=== PATIENT | male | born 1975 | race Caucasian/White ===

== ENCOUNTER 2016-10-22 23:33 | Emergency (ER) | payer SELFPAY ==
[2016-10-22] MEDS ORDERED: ACETAMINOPHEN 325 MG TABLET PO ONE (23:53)
--- NOTE | 2016-10-23 01:40 | ER Document Report ---
ED Fever - General Chief Complaint: Fever Stated Complaint: CHEST PAIN TRAVEL OUTSIDE OF THE U.[place]. IN LAST 30 DAYS: No - Related Data Allergies/Adverse Reactions: shrimp Allergy (Uncoded 03/04/13 00:15) Past Medical History - Social History Smoking Status: Unknown if Ever Smoked Family History: Reviewed & Not Pertinent. denies: CAD Patient has suicidal ideation: No Patient has homicidal ideation: No Pulmonary Medical History: Reports: Hx Asthma Denies: Hx COPD Renal/ Medical History: Denies: Hx Peritoneal Dialysis - Immunizations Hx Diphtheria, Pertussis, Tetanus Vaccination: No Discharge - Discharge Clinical Impression: Influenza A Condition: Stable Disposition: HOME, SELF-CARE Instructions: Influenza ([facility]) [id number] Forms: Return to Work
[2016-10-23] MEDS ORDERED: ONDANSETRON 4 MG TAB.RAPDIS PO ONE (01:43)
[2016-10-23] MEDS ORDERED: IBUPROFEN 800 MG TABLET PO ONE (01:43)
--- NOTE | 2016-10-23 01:44 | ER Document Report ---
ED Flu Like - General Mode of Arrival: Ambulatory Information source: Patient TRAVEL OUTSIDE OF THE [place] IN LAST 30 DAYS: No - HPI Onset: This morning Timing/Duration: Persistent Quality of pain: Achy Associated symptoms: Other - see narrative - General Chief Complaint: Fever Stated Complaint: CHEST PAIN Notes: Patient is a 41-year-old Maori speaking male that presents to the emergency department today with flu-like symptoms including fevers, a cough with associated chest wall pain, a headache, and nasal congestion. Patient states he has a past medical history significant for asthma. Patient states he did not receive a flu vaccination this year. Patient denies any nausea or vomiting. (FELIPE REGAN) - Related Data Allergies/Adverse Reactions: shrimp Allergy (Uncoded 03/04/13 00:15) Past Medical History - General Information source: Patient - Social History Smoking Status: Never Smoker Cigarette use (# per day): No Frequency of alcohol use: None Drug Abuse: None Lives with: Family Family History: Reviewed & Not Pertinent Patient has suicidal ideation: No Patient has homicidal ideation: No Pulmonary Medical History: Reports: Hx Asthma Surgical Hx: Negative - Immunizations Hx Diphtheria, Pertussis, Tetanus Vaccination: No Review of Systems - Review of Systems Constitutional: See HPI, Fever EENT: See HPI, Nose congestion Cardiovascular: No symptoms reported Respiratory: See HPI, Cough - with associated chest wall pain Gastrointestinal: denies: Nausea, Vomiting Genitourinary: No symptoms reported Male Genitourinary: No symptoms reported Musculoskeletal: No symptoms reported Skin: No symptoms reported Hematologic/Lymphatic: No symptoms reported Neurological/Psychological: See HPI, Headaches -: Yes All other systems reviewed and negative Physical Exam - Vital signs Interpretation: Tachycardic, Febrile - Vital signs Vitals: Temp Pulse Resp BP Pulse Ox 102.2 F H 129 H 18 124/68 98 10/22/16 23:39 10/22/16 23:39 10/22/16 23:39 10/22/16 23:39 10/22/16 23:39 (CHRISTOPHER GLEASON) - Notes Notes: Physical Exam: General: Alert, febrile. HEENT: Normocephalic. Atraumatic. PERRL. Extraocular movements intact. Oropharynx clear. Nasal congestion. Neck: Supple. Non-tender. Respiratory: No respiratory distress. Clear and equal breath sounds bilaterally. Cardiovascular: Tachycardic, regular rhythm. Abdominal: Normal Inspection. Non-tender. No distension. Normal Bowel Sounds. Back: Non-tender. No deformity or step off. Extremities: Moves all four extremities. Upper extremities: Normal inspection. Normal ROM. Lower extremities: Normal inspection. No edema. Normal ROM. Neurological: Normal cognition. AAOx4. Normal speech. Psychological: Normal affect. Normal Mood. Skin: Warm. Dry. Normal color. (FELIPE REGAN) Course - Re-evaluation Re-evalutation: 10/23/16 Patient with influenza A. Patient will be instructed to take Tylenol and ibuprofen. No respiratory distress. Stable for discharge home. Return if any worsening or concerning symptoms. (CHRISTOPHER GLEASON) - Vital Signs Vital signs: Temp Pulse Resp BP Pulse Ox 99.2 F 98 16 124/78 98 10/23/16 02:54 10/23/16 02:54 10/23/16 02:54 10/23/16 02:54 10/23/16 02:54 (CHRISTOPHER GLEASON) Discharge - Discharge Clinical Impression: Influenza A Condition: Stable Disposition: HOME, SELF-CARE Instructions: Influenza ([facility]) [id number] Forms: Return to Work Print Language: Maori Scribe Attestation: 10/23/16 06:16 I personally performed the services described in the documentation, reviewed and edited the documentation which was dictated to the scribe in my presence, and it accurately records my words and actions. (CHRISTOPHER GLEASON) Scribe Documentation - Scribe Written by Crystal:: Crystal Maurer, [id number] 10/23/2016 acting as scribe for :: Sherrie
[2016-10-23 02:56] VITALS: BP 124/78
--- NOTE | 2016-10-23 23:50 | EKG REPORT ---
SEVERITY:- OTHERWISE NORMAL ECG - SINUS TACHYCARDIA : Confirmed by: Mark Leon 23-Oct-2016 23:50:16
== END 2016-10-23 02:56 | disposition home or self-care (01) ==
LOC: ER 23:33
DX: J11.1 Influenza due to unidentified influenza virus with other respiratory manifestations (principal); R50.9 Fever, unspecified; R00.0 Tachycardia, unspecified; R05 Cough; R07.89 Other chest pain; R51 Headache; R09.81 Nasal congestion; J45.909 Unspecified asthma, uncomplicated; Z91.013 Allergy to seafood
CPT/HCPCS: 93005; 99283; 87804; 93010; S0119

== ENCOUNTER 2016-12-05 16:28 | Emergency (ER) | payer OTHER ==
[2016-12-05 16:35] VITALS: BP 122/70
--- NOTE | 2016-12-05 16:38 | ER Document Report ---
ED Medical Screen (RME) - General Stated Complaint: BREATHING PROBLEMS Notes: 41 yo male c/o not feeling well, having difficulty breathing x 1 year. feels short of breath, especially when eating. + cough. + nasal congestion. nonsmoker. + hx/o asthma. lungs CTA TRAVEL OUTSIDE OF THE [place] IN LAST 30 DAYS: No - Related Data Allergies/Adverse Reactions: shrimp Allergy (Uncoded 12/05/16 16:33) Past Medical History Pulmonary Medical History: Reports: Hx Asthma Denies: Hx COPD Renal/ Medical History: Denies: Hx Peritoneal Dialysis - Immunizations Hx Diphtheria, Pertussis, Tetanus Vaccination: No
--- NOTE | 2016-12-05 18:02 | ER Document Report ---
HPI - HPI Patient complains to provider of: difficulty breathing Onset: Other - one year Pain Level: 4 Context: Patient presents emergency department with complaints of difficulty breathing after he eats. He also reports nose stuffy and feels like his heart is racing at times for over a year. He denies other symptoms such as fever vomiting diarrhea. He denies past medical history such as asthma or cardiac disease. Patient is speaking in clear voice, no distress. Reports history of GERD. Patient speaks Kenyan only all interpretation was done through [facility] Associated Symptoms: None Exacerbated by: Food Relieved by: Denies Similar symptoms previously: No Recently seen / treated by doctor: No - DERM Skin Color: Normal Past Medical History - General Information source: Patient - Social History Smoking Status: Unknown if Ever Smoked Cigarette use (# per day): No Chew tobacco use (# tins/day): No Frequency of alcohol use: None Drug Abuse: None Lives with: Family Family History: Reviewed & Not Pertinent Patient has suicidal ideation: No Patient has homicidal ideation: No - Medical History Medical History: Negative Pulmonary Medical History: Denies: Hx COPD Renal/ Medical History: Denies: Hx Peritoneal Dialysis Surgical Hx: Negative - Immunizations Hx Diphtheria, Pertussis, Tetanus Vaccination: No Vertical Provider Document - CONSTITUTIONAL Agree With Documented VS: Yes Exam Limitations: No Limitations General Appearance: WD/WN, No Apparent Distress - INFECTION CONTROL TRAVEL OUTSIDE OF THE [place] IN LAST 30 DAYS: No - HEENT HEENT: Atraumatic, Normocephalic - NECK Neck: Normal Inspection, Supple. negative: Lymphadenopathy-Left, Lymphadenopathy-Right - RESPIRATORY Respiratory: Breath Sounds Normal, No Respiratory Distress, Chest Non-Tender. negative: Rales, Rhonchi, Wheezing O2 Sat by Pulse Oximetry: 100 - CARDIOVASCULAR Cardiovascular: Regular Rate, Regular Rhythm - GI/ABDOMEN Gastrointestinal: Abdomen Soft, Abdomen Non-Tender - BACK Back: Normal Inspection - MUSCULOSKELETAL/EXTREMETIES Musculoskeletal/Extremeties: MAEW, FROM, Non-Tender - NEURO Level of Consciousness: Awake, Alert, Appropriate Motor/Sensory: No Motor Deficit - DERM Integumentary: Warm, Dry Course - Re-evaluation Re-evalutation: 12/05/16 18:04 pt was instructed on neg xray, GERD, fu with ccc. All interpretation done thru [facility]. Pt does not read ivorian but reports he can get a neighbor or friend to read ivorian for his discharge instructions. Glass does not print some things in Kenyan. - Vital Signs Vital signs: Temp Pulse Resp BP Pulse Ox 98.0 F 71 16 122/70 100 12/05/16 16:34 12/05/16 16:34 12/05/16 16:34 12/05/16 16:34 12/05/16 16:34 - Diagnostic Test Radiology reviewed: Image reviewed, Reports reviewed - RAD/ CHEST PA/LAT IMPRESSION: NO SIGNIFICANT RADIOGRAPHIC FINDING IN THE CHEST. Discharge - Discharge Clinical Impression: Difficulty breathing, Nasal congestion Condition: Stable Disposition: HOME, SELF-CARE Instructions: [facility], Reflux Disease (GERD) ([facility]), Nasal Sprays and Drops ([facility]) Additional Instructions: *You have been evaluated for difficulty breathing, nasal congestion *Increase fluid intake *Avoid spicy foods, avoid over eating *Flonase one spray each nostril daily *Follow up with the [facility] within one week for recheck *Return to ED for worsening condition, changes, needs, concerns Print Language: Kenyan
[2016-12-05] MEDS ORDERED: FLUTICASONE NASAL SPRAY 50 MCG/SPRY 120 SPRAY/16 GM NASL ONE (18:19)
== END 2016-12-05 19:04 | disposition home or self-care (01) ==
LOC: ER 16:28
DX: R06.00 Dyspnea, unspecified (principal); R09.81 Nasal congestion; R09.89 Other specified symptoms and signs involving the circulatory and respiratory systems; Z87.19 Personal history of other diseases of the digestive system
CPT/HCPCS: 71020; 99284

== ENCOUNTER 2020-02-26 11:56 | Emergency (ER) | payer SELFPAY ==
[2020-02-26] MEDS ORDERED: ONDANSETRON HCL INJ/PF 4 MG/2 ML SDV IV ONE (12:15)
[2020-02-26] MEDS ORDERED: MORPHINE SULFATE 10 MG/ML INJ IV ONE (12:15)
--- NOTE | 2020-02-26 12:19 | ER Document Report ---
ED Medical Screen (RME) - General Chief Complaint: Abdominal Pain Stated Complaint: ABDOMINAL PAIN Time Seen by Provider: 02/26/20 12:05 Notes: Patient is a 45-year-old Amharic-speaking male who presents emergency department with a chief complaint of right lower abdominal pain. States the pain starts in his right lower abdomen and radiates to his mouth area. Also states the pain radiates to his back. States it is a burning sensation. His last bowel movement was yesterday. Denies any medical history. Denies any surgeries. Denies any history of kidney stones. Denies dysuria. Patient does not smoke, drink alcohol, or use any recreational drugs. 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 Exam: Soft, mildly tender right lower quadrant abdomen. I have greeted and performed a rapid initial assessment of this patient. A comprehensive ED assessment and evaluation of the patient, analysis of test results and completion of medical decision making process will be conducted by an additional ED providers. TRAVEL OUTSIDE OF THE [place] IN LAST 30 DAYS: No - Related Data Allergies/Adverse Reactions: shrimp Allergy (Uncoded 12/05/16 16:33) Past Medical History - Social History Chew tobacco use (# tins/day): No Frequency of alcohol use: None Drug Abuse: None Pulmonary Medical History: Reports: Hx Asthma Denies: Hx COPD Renal/ Medical History: Denies: Hx Peritoneal Dialysis - Immunizations Hx Diphtheria, Pertussis, Tetanus Vaccination: No Physical Exam - Vital signs Vitals: Temp Pulse Resp BP Pulse Ox 98.7 F 63 16 146/77 H 98 02/26/20 12:04 02/26/20 12:04 02/26/20 12:04 02/26/20 12:04 02/26/20 12:04 Course - Vital Signs Vital signs: Temp Pulse Resp BP Pulse Ox 98.7 F 63 16 146/77 H 98 02/26/20 12:04 02/26/20 12:04 02/26/20 12:04 02/26/20 12:04 02/26/20 12:04
--- NOTE | 2020-02-26 12:31 | ER Document Report ---
ED GI/ - General Chief Complaint: Abdominal Pain Stated Complaint: ABDOMINAL PAIN Time Seen by Provider: 02/26/20 12:05 Notes: CHIEF COMPLAINT: Right-sided abdominal pain for 3 to 4 days HPI: History is obtained from the patient using the outreach clinician computer. 45-year-old male with right-sided abdominal pain over the last 3 to 4 days with some nausea no vomiting no fever. Started after he ate jalapeno peppers. Patient relates that he has had no prior abdominal surgeries. Has not had diarrhea or constipation. Denies penile or testicular pain ROS: See HPI - all other systems were reviewed and are otherwise negative Constitutional: no fever Eyes: no drainage, no blurred vision ENT: no runny nose, no sore throat Cardiovascular: no chest pain Resp: no SOB, no cough GI: no vomiting, no diarrhea, positive abdominal pain, positive nausea : no dysuria Integumentary: no rash Allergy: no hives Musculoskeletal: no extremity pain or swelling Neurological: no numbness/tingling, no weakness MEDICATIONS: I agree with the patient medications as charted by the RN. ALLERGIES: I agree with the allergies as charted by the RN. PAST MEDICAL HISTORY/PAST SURGICAL HISTORY: Reviewed and agree as charted by RN. SOCIAL HISTORY: Reviewed and agree as charted by RN. FAMILY HISTORY: No significant familial comorbid conditions directly related to patient complaint EXAM: Reviewed vital signs as charted by RN. CONSTITUTIONAL: Alert and oriented and responds appropriately to questions. Well-appearing; well-nourished HEAD: Normocephalic; atraumatic EYES: PERRL; Conjunctivae clear, sclerae non-icteric ENT: normal nose; no rhinorrhea; moist mucous membranes; pharynx without lesions noted, no uvula edema or deviation, no tonsillar hypertrophy, phonation normal NECK: Supple without meningismus; non-tender; no cervical lymphadenopathy, no masses CARD: RRR; no murmurs, no clicks, no rubs, no gallops; symmetric distal pulses RESP: Normal chest excursion without splinting or tachypnea; breath sounds clear and equal bilaterally; no wheezes, no rhonchi, no rales, pulse oximetry 98% on room air not hypoxic ABD/GI: Normal bowel sounds; non-distended; soft, patient is tender both in the right lower lateral abdomen as well as the right upper quadrant region on palpation, no rebound, no guarding; no palpable organomegaly or masses. BACK: The back appears normal and is non-tender to palpation, there is no CVA tenderness EXT: Normal ROM in all joints; non-tender to palpation; no cyanosis, no effusions, no edema SKIN: Normal color for age and race; warm; dry; good turgor; no acute lesions noted NEURO: Moves all extremities equally; Motor and sensory function intact PSYCH: The patient's mood and manner are appropriate. Grooming and personal hygiene are appropriate. MDM: 45-year-old male with right-sided abdominal pain over the last 3 to 4 days. Patient is tender both in the lower and upper abdomen, unable to get patient to differentiate between the 2. Will obtain [address] scan that we we can ensure that this is not appendicitis but will also be able to evaluate the gallbladder. Will screening labs ordered in triage process TRAVEL OUTSIDE OF THE [place] IN LAST 30 DAYS: No - Related Data Allergies/Adverse Reactions: shrimp Allergy (Uncoded 12/05/16 16:33) Past Medical History - Social History Smoking Status: Current Every Day Smoker Chew tobacco use (# tins/day): No Frequency of alcohol use: None Drug Abuse: None Family History: Reviewed & Not Pertinent Patient has homicidal ideation: No Pulmonary Medical History: Reports: Hx Asthma Denies: Hx COPD Renal/ Medical History: Denies: Hx Peritoneal Dialysis - Immunizations Hx Diphtheria, Pertussis, Tetanus Vaccination: No Physical Exam - Vital signs Vitals: Temp Pulse Resp BP Pulse Ox 98.7 F 63 16 146/77 H 98 02/26/20 12:04 02/26/20 12:04 02/26/20 12:04 02/26/20 12:04 02/26/20 12:04 Course - Re-evaluation Re-evalutation: 02/26/20 15:32 CT imaging and ultrasound imaging did not show acute emergent abnormalities. Patient lab work otherwise does not show acute leukocytosis although he does show a mild elevation of his T bili and lipase. Will place patient on medication for gastritis, Bentyl for discomfort and spasm, recommend avoiding spicy foods or greasy foods refer to GI for follow-up. - Vital Signs Vital signs: Temp Pulse Resp BP Pulse Ox 98.4 F 64 16 145/84 H 98 02/26/20 15:06 02/26/20 15:06 02/26/20 15:06 02/26/20 15:06 02/26/20 12:04 - Laboratory Result Diagrams: 02/26/20 12:36 02/26/20 12:36 Laboratory results interpreted by me: 02/26/20 02/26/20 12:36 12:36 Total Bilirubin 2.1 H Lipase 471.2 H Urine Blood MODERATE H Discharge - Discharge Clinical Impression: Abdominal pain, right lateral Condition: Stable Disposition: HOME, SELF-CARE Additional Instructions: Avoid greasy or spicy foods. Your imaging studies today did not show appendicitis or inflammation of your gallbladder. Take the medications as prescribed to help with the abdominal pain and discomfort. Call the gastroenterology number to arrange follow-up for further evaluation should your symptoms persist. If you develop vomiting or fever greater than 101 return for reevaluation. It was noted that some of your lab work related to your liver and pancreas was elevated today and this needs to be rechecked with the insulation board head saw operator Evite los alimentos grasosos o picantes. Mansi estudios de imagen de prakash no mostraron apendicitis o inflamacin de mathias vescula biliar. Dolores los medicamentos segn lo prescrito para ayudar con el dolor abdominal y las molestias. Llame al nmero de gastroenterologa para organizar el seguimiento para luly evaluacin adicional si mansi sntomas persisten. Si desarrolla vmitos o fiebre superior a 1 01, regrese para la reevaluacin. Se observ que parte de mathias trabajo de laboratorio relacionado con mathias hgado y pncreas fue elevado hoy y esto debe ser revisado nuevamente con el gastroenterlogo. Prescriptions: Dicyclomine HCl [Bentyl 20 mg Tablet] 20 mg PO Q6H PRN #20 tablet PRN Reason: Pantoprazole Sodium [Protonix [address] Tablet] 20 mg PO DAILY #30 tablet. Referrals: FARIBA CARRASQUILLO MD [ACTIVE STAFF] - Follow up as needed
[2020-02-26 12:51] LABS: ABSOLUTE EOSINOPHILS # (AUTO) 0.1 10^3/uL (0.0-0.6); ABSOLUTE LYMPHOCYTES (AUTO) 2.7 10^3/uL (0.5-4.7); ABSOLUTE MONOCYTES (AUTO) 0.5 10^3/uL (0.1-1.4); ABSOLUTE NEUT (AUTO) 4.5 10^3/uL (1.7-8.2); BASOPHILS % (AUTO) 0.4 % (0-2); HEMATOCRIT 47.8 % (37.9-51.0); HEMOGLOBIN 16.7 g/dL (13.5-17.0); LYMPHOCYTES % (AUTO) 34.8 % (13-45); MEAN CORPUSCULAR HGB CONC 34.9 g/dL (32.0-36.0); MEAN CORPUSCULAR VOLUME 86 fl (80-97); MONOCYTES % (AUTO) 5.8 % (3-13); PLATELET COUNT 272 10^3/uL (150-450); RED BLOOD COUNT 5.55 10^6/uL (4.35-5.55); RED CELL DISTRIBUTION WIDTH 13.7 % (11.5-14.0); TOTAL CELLS COUNTED % (AUTO) 100 %; WHITE BLOOD COUNT 7.8 10^3/uL (4.0-10.5)
[2020-02-26 13:00] LABS: APPEARANCE,URINE CLEAR; BILIRUBIN,URINE NEGATIVE (NEGATIVE); COLOR,URINE STRAW; GLUCOSE, URINE NEGATIVE (NEGATIVE); KETONES,URINE NEGATIVE (NEGATIVE); LEUKOCYTE ESTERASE,URINE NEGATIVE (NEGATIVE); NITRITE,URINE NEGATIVE (NEGATIVE); PROTEIN,URINE NEGATIVE (NEGATIVE); URINE SPECIFIC GRAVITY 1.009; UROBILINOGEN,URINE NEGATIVE mg/dL (<2.0)
[2020-02-26 13:10] LABS: ALBUMIN 4.5 g/dL (3.5-5.0); ALKALINE PHOSPHATASE 96 U/L (38-126); ANION GAP 7 (5-19); ASPARTATE AMINO TRANSFERASE 31 U/L (17-59); BILIRUBIN,TOTAL 2.1 mg/dL (0.2-1.3); BLOOD UREA NITROGEN 12 mg/dL (7-20); CALCIUM 9.4 mg/dL (8.4-10.2); CARBON DIOXIDE 25 mmol/L (22-30); CHLORIDE 106 mmol/L (98-107); GLUCOSE 99 mg/dL (75-110); TOTAL PROTEIN 7.7 g/dL (6.3-8.2)
[2020-02-26 15:11] VITALS: BP 145/84
--- NOTE | 2020-02-26 15:11 | RADIOLOGY REPORT (SQ) ---
EXAM DESCRIPTION: CT ABD/PELVIS WITH IV ONLY IMAGES COMPLETED DATE/TIME: 02/26/2020 2:54 pm REASON FOR STUDY: right abd pain COMPARISON: None. TECHNIQUE: CT scan of the abdomen and pelvis performed using helical scanning technique with dynamic intravenous contrast injection. No oral contrast. Images reviewed with lung, soft tissue, and bone windows. Reconstructed coronal and sagittal MPR images reviewed. Delayed images for evaluation of the urinary system also acquired. All images stored on PACS. All CT scanners at this facility use dose modulation, iterative reconstruction, and/or weight based d osing when appropriate to reduce radiation dose to as low as reasonably achievable (ALARA). [facility]: Dose Right [facility]: CareDose [facility]: Dose Right [facility]: Teradose 4D [facility]: MedEncentive CONTRAST TYPE AND DOSE: 100 mL Omnipaque 350- low osmolar. RENAL FUNCTION: GFR > 60. RADIATION DOSE: CT Rad equipment meets quality standard of care and radiation dose reduction techniq ues were employed. CTDIvol: 4.9 - 6.1 mGy. DLP: 615 mGy-cm.. LIMITATIONS: None. FINDINGS: LOWER CHEST: No significant findings. No nodules or infiltrates. LIVER: Normal size. No masses. No dilated ducts. SPLEEN: Normal size. No focal lesions. PANCREAS: No masses. No significant calcifications. No adjacent inflammation or peripancreatic fluid collections. Pancreatic duct not dilated. GALLBLADDER: No identified stones by CT criteria. No inflammatory changes to suggest cholecystitis. ADRENAL GLANDS: No significant masses or asymmetry. RIGHT KIDNEY AND URETER: No solid masses. No significant calcifications. No hydronephrosis or hyd roureter. LEFT KIDNEY AND URETER: No solid masses. No significant calcifications. No hydronephrosis or hydr oureter. AORTA AND VESSELS: No aneurysm. No dissection. Renal arteries, SMA, celiac without stenosis. RETROPERITONEUM: No retroperitoneal adenopathy, hemorrhage or masses. BOWEL AND PERITONEAL CAVITY: No masses or inflammatory changes. No free fluid or peritoneal masses. APPENDIX: Normal. PELVIS: No mass. No free fluid. Normal bladder. ABDOMINAL WALL: No masses. No hernias. BONES: No significant or acute findings. OTHER: No other significant finding. IMPRESSION: NO SIGNIFICANT OR ACUTE FINDING IN THE ABDOMEN OR PELVIS ON CT SCAN WITH IV CONTRAST. TECHNICAL DOCUMENTATION: JOB ID: [id number] Quality ID # [id number]: Final reports with documentation of one or more dose reduction techniques (e.g., Au tomated exposure control, adjustment of the mA and/or kV according to patient size, use of iterative reconstruction technique) 2010 [employer]- All Rights Reserved Reading location - IP/workstation name: [email or web address]
--- NOTE | 2020-02-26 15:14 | RADIOLOGY REPORT (SQ) ---
EXAM DESCRIPTION: U/S ABDOMEN LIMITED W/O DOP IMAGES COMPLETED DATE/TIME: 02/26/2020 2:47 pm REASON FOR STUDY: ruq pain COMPARISON: None. TECHNIQUE: Dynamic and static grayscale images acquired of the abdomen and recorded on PACS. Additio nal selected color Doppler and spectral images recorded. LIMITATIONS: None. FINDINGS: PANCREAS: Limited due to overlying bowel gas. No gross abnormalities. LIVER: There is coarsened echotexture and hyperechogenicity of the liver, consistent with hepatic janna atosis. There are geographic areas of fatty sparing present throughout the liver. No focal lesions identified. LIVER VASCULATURE: Normal directional flow of the main portal vein and hepatic veins. GALLBLADDER: No stones. Normal wall thickness. No pericholecystic fluid. ULTRASOUND-DETECTED CANTOR'S SIGN: Negative. INTRAHEPATIC DUCTS AND COMMON DUCT: CBD and intrahepatic ducts normal caliber. No filling defects. AORTA: No aneurysm. RIGHT KIDNEY: Normal size. Normal echogenicity. No solid or suspicious masses. No hydronephrosis. No calcifications. PERITONEAL AND RIGHT PLEURAL SPACE: No ascites or effusions. OTHER: No other significant findings. IMPRESSION: Hepatic steatosis with areas of geographic fatty sparing. Exam is otherwise unremarkabl e. TECHNICAL DOCUMENTATION: JOB ID: [id number] 2010 [employer]- All Rights Reserved Reading location - IP/workstation name: [email or web address]
[2020-02-26] MEDS ORDERED: LIDOCAINE 2% VISCOUS SOLN 15 ML UDCUP PO ONE (15:16)
[2020-02-26] MEDS ORDERED: MAG HYDROX/AL HYDROX/SIMETH SUSP 30 ML UDCUP PO ONE (15:16)
[2020-02-26] MEDS ORDERED: METOCLOPRAMIDE HCL ORAL SOLN 10 MG/10 ML UDCUP PO ONE (15:16)
== END 2020-02-26 15:50 | disposition home or self-care (01) ==
LOC: ER 11:56
DX: R10.31 Right lower quadrant pain (principal); R11.0 Nausea; F17.200 Nicotine dependence, unspecified, uncomplicated; Z91.013 Allergy to seafood
CPT/HCPCS: 99284; 96374; 96375; 36415; 83690; 85025; 80053; 81001; 76705; 74177; J3490; J2270; J2405

== ENCOUNTER 2020-03-12 14:57 | Emergency (ER) | payer SELFPAY ==
[2020-03-12] MEDS ORDERED: MAGNESIUM CITRATE 296 ML BOTTLE PO ONE (16:17)
--- NOTE | 2020-03-12 16:21 | ER Document Report ---
ED Medical Screen (RME) - General Chief Complaint: Abdominal Pain Stated Complaint: PAIN ALL OVER Time Seen by Provider: 03/12/20 16:17 Mode of Arrival: Ambulatory Information source: Patient Notes: 45-year-old male presented to ED for complaint of right abdomen pain around to his back and down both legs. He states he has had this pain for 3 weeks. I did use [employer] linotype worker #[id number]. He states that he has had this pain for 3 weeks and he has been constipated for at least 3 weeks. He states he was seen in the emergency room and they gave him some medications and they did not help him at all. He states he did not tell them that he was constipated at that time. He states he does have small stools but never has enough stool and he is constantly being hurting. He states the pain is much worse now than it was 3 weeks ago. He is alert oriented respirations regular nonlabored speaking in full sentences. He did tell the linotype worker that he has not had a good bowel movement in at least 3 weeks. We will treat him with magnesium citrate, get some blood and urine, and get an acute abdomen series. I have greeted and performed a rapid initial assessment of this patient. A c omprehensive ED assessment and evaluation of the patient, analysis of test results and completion of medical decision making process will be conducted by an additional ED providers. TRAVEL OUTSIDE OF THE [place] IN LAST 30 DAYS: No - Related Data Allergies/Adverse Reactions: shrimp Allergy (Uncoded 12/05/16 16:33) Past Medical History Pulmonary Medical History: Reports: Hx Asthma Denies: Hx COPD Renal/ Medical History: Denies: Hx Peritoneal Dialysis - Immunizations Hx Diphtheria, Pertussis, Tetanus Vaccination: No Physical Exam - Vital signs Vitals: Temp Pulse Resp BP Pulse Ox 98.1 F 79 16 134/77 H 97 03/12/20 15:01 03/12/20 15:01 03/12/20 15:03/12/20 15:01 03/12/20 15:01 Course - Vital Signs Vital signs: Temp Pulse Resp BP Pulse Ox 98.1 F 79 16 134/77 H 97 03/12/20 15:01 03/12/20 15:01 03/12/20 15:01 03/12/20 15:01 03/12/20 15:01
--- NOTE | 2020-03-12 16:49 | RADIOLOGY REPORT (SQ) ---
EXAM DESCRIPTION: ACUTE ABDOMEN SERIES IMAGES COMPLETED DATE/TIME: 03/12/2020 4:36 pm REASON FOR STUDY: abdominal pain x 3 weeks constipation COMPARISON: None. NUMBER OF VIEWS: Three views. TECHNIQUE: Frontal chest, supine abdomen and upright/decubitus abdomen radiographic images acquired. LIMITATIONS: None. FINDINGS: CHEST: Lungs clear of infiltrates. FREE AIR: None. No abnormal gas collections. BOWEL GAS PATTERN: Nonobstructive pattern. No dilated loops or air fluid levels. CONSTIPATION: mild. CALCIFICATIONS: No suspicious calcifications. HARDWARE: None in the abdomen. SOFT TISSUES: No gross mass or suggestion of organomegaly. BONES: No acute fracture. No worrisome bone lesions. OTHER: No other significant finding. IMPRESSION: NO RADIOGRAPHIC EVIDENCE FOR ACUTE ABDOMINAL DISEASE. TECHNICAL DOCUMENTATION: JOB ID: [id number] [place]-72 2010 [employer]- All Rights Reserved Reading location - IP/workstation name: [email or web address]
[2020-03-12 17:27] LABS: ABSOLUTE EOSINOPHILS # (AUTO) 0.2 10^3/uL (0.0-0.6); ABSOLUTE LYMPHOCYTES (AUTO) 2.9 10^3/uL (0.5-4.7); ABSOLUTE MONOCYTES (AUTO) 0.6 10^3/uL (0.1-1.4); ABSOLUTE NEUT (AUTO) 4.1 10^3/uL (1.7-8.2); BASOPHILS % (AUTO) 0.4 % (0-2); EOSINOPHILS % (AUTO) 2.2 % (0-6); HEMATOCRIT 46.1 % (37.9-51.0); HEMOGLOBIN 15.9 g/dL (13.5-17.0); LYMPHOCYTES % (AUTO) 37.4 % (13-45); MEAN CORPUSCULAR HEMOGLOBIN 29.8 pg (27.0-33.4); MEAN CORPUSCULAR HGB CONC 34.6 g/dL (32.0-36.0); MEAN CORPUSCULAR VOLUME 86 fl (80-97); MONOCYTES % (AUTO) 7.3 % (3-13); PLATELET COUNT 266 10^3/uL (150-450); RED BLOOD COUNT 5.34 10^6/uL (4.35-5.55); RED CELL DISTRIBUTION WIDTH 13.2 % (11.5-14.0); SEGMENTED NEUTROPHILS % (AUTO) 52.7 % (42-78); TOTAL CELLS COUNTED % (AUTO) 100 %; WHITE BLOOD COUNT 7.7 10^3/uL (4.0-10.5)
[2020-03-12 17:29] LABS: APPEARANCE,URINE CLEAR; BILIRUBIN,URINE NEGATIVE (NEGATIVE); COLOR,URINE YELLOW; GLUCOSE, URINE NEGATIVE (NEGATIVE); KETONES,URINE NEGATIVE (NEGATIVE); LEUKOCYTE ESTERASE,URINE NEGATIVE (NEGATIVE); NITRITE,URINE NEGATIVE (NEGATIVE); PROTEIN,URINE NEGATIVE (NEGATIVE); URINE SPECIFIC GRAVITY 1.024; UROBILINOGEN,URINE NEGATIVE mg/dL (<2.0)
[2020-03-12 17:30] LABS: ALBUMIN 4.6 g/dL (3.5-5.0); ALKALINE PHOSPHATASE 87 U/L (38-126); ANION GAP 10 (5-19); ASPARTATE AMINO TRANSFERASE 31 U/L (17-59); BLOOD UREA NITROGEN 12 mg/dL (7-20); CALCIUM 9.1 mg/dL (8.4-10.2); CARBON DIOXIDE 24 mmol/L (22-30); CHLORIDE 105 mmol/L (98-107); GLUCOSE 102 mg/dL (75-110); TOTAL PROTEIN 7.5 g/dL (6.3-8.2)
[2020-03-12] MEDS ORDERED: KETOROLAC TROMETHAMINE INJ/PF 30 MG/1 ML SDV IV ONE (20:17)
[2020-03-12] MEDS ORDERED: NORMAL SALINE 1000 ML 1,000 ML IV ONE (20:17)
[2020-03-12] MEDS ORDERED: METHYLPREDNISOLONE INJ 125 MG/2 ML SDV IV ONE (20:56)
[2020-03-12] MEDS ORDERED: ONDANSETRON HCL INJ/PF 4 MG/2 ML SDV IV ONE (22:13)
[2020-03-12] MEDS ORDERED: MORPHINE SULFATE 10 MG/ML INJ IV ONE (22:13)
--- NOTE | 2020-03-12 23:14 | ER Document Report ---
Entered by NAEEM PAREDES SCRIBE 03/12/202050 Acting as scribe for:ANDRÉS CABRERA IV, MD ED GI/ - General Mode of Arrival: Ambulatory Information source: Patient TRAVEL OUTSIDE OF THE [place] IN LAST 30 DAYS: No <ANDRÉS CABRERA IV - Last Filed: 03/13/20 00:29> <JORDANMALISSA Sonja - Last Filed: 03/13/20 00:49> - General Chief Complaint: Abdominal Pain Stated Complaint: PAIN ALL OVER Time Seen by Provider: 03/12/20 16:17 Primary Care Provider: ESTHER LOYA MD [HONORARY] - Follow up as needed Notes: This 45 year old male Estonian-speaking patient presents to the ED today with complaints of RLQ abdominal pain with associated constipation for the past x3 weeks. Patient states that the pain radiates to his right lower back. He also reports pain to the back of his legs bilaterally that is exacerbated by changing positions. 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 Denies testicular/penile pain, urinary retention, or fecal incontinence. Patient was seen here at the time of symptom onset and had a CT of the abdomen/pelvis with IV contrast only and an abdominal US that did not show any evidence of calcifications, gallstones, acute cholecystitis, hydronephrosis, or hydroureter. HPI was relayed using a [employer] kids activities coach. (ANDRÉS CABRERA IV) - Related Data Allergies/Adverse Reactions: shellfish derived Allergy (Verified 03/12/20 17:46) shrimp Allergy (Uncoded 03/12/20 17:46) Past Medical History - General Information source: Patient - Social History Smoking Status: Never Smoker Cigarette use (# per day): No Chew tobacco use (# tins/day): No Smoking Education Provided: No Family History: Reviewed & Not Pertinent Patient has suicidal ideation: No Patient has homicidal ideation: No Pulmonary Medical History: Reports: Hx Asthma - Immunizations Hx Diphtheria, Pertussis, Tetanus Vaccination: No <ANDRÉS CABRERA IV - Last Filed: 03/13/20 00:29> Review of Systems - Review of Systems Constitutional: No symptoms reported EENT: No symptoms reported Cardiovascular: No symptoms reported Respiratory: No symptoms reported Gastrointestinal: See HPI, Abdominal pain. denies: Fecal incontinence Genitourinary: See HPI. denies: Retention Male Genitourinary: See HPI. denies: Testicular pain, Other - Penile pain Musculoskeletal: See HPI, Back pain, Other - Bilateral lower extremity pain Skin: No symptoms reported Hematologic/Lymphatic: No symptoms reported Neurological/Psychological: No symptoms reported -: Yes All other systems reviewed and negative <ANDRÉS CABRERA IV - Last Filed: 03/13/20 00:29> Physical Exam - General General appearance: Appears well, Alert In distress: None - HEENT Head: Normocephalic, Atraumatic Eyes: Normal Pupils: PERRL - Respiratory Respiratory status: No respiratory distress Chest status: Nontender Breath sounds: Normal Chest palpation: Normal - Cardiovascular Rhythm: Regular Heart sounds: Normal auscultation Murmur: No Friction rub: No Gallop: None auscultated - Abdominal Inspection: Normal Distension: No distension Bowel sounds: Normal Tenderness: Nontender - Abdomen soft Organomegaly: No organomegaly - Back Back: Normal, Nontender - Extremities General upper extremity: Normal inspection General lower extremity: Other - Positive staight leg raise bilaterally at 45 degrees - Neurological Neuro grossly intact: Yes Orientation: AAOx4 [place] Coma Scale Eye Opening: Spontaneous [place] Coma Scale Verbal: Oriented [place] Coma Scale Motor: Obeys Commands [place] Coma Scale Total: 15 - Psychological Associated symptoms: Normal affect, Normal mood - Skin Skin Temperature: Warm Skin Moisture: Dry Skin Color: Normal <ANDRÉS CABRERA IV - Last Filed: 03/13/20 00:29> - Vital signs Vitals: Temp Pulse Resp BP Pulse Ox 98.1 F 79 16 134/77 H 97 03/12/20 15:01 03/12/20 15:01 03/12/20 15:01 03/12/20 15:01 03/12/20 15:01 Course - Laboratory Result Diagrams: 03/12/20 16:48 03/12/20 16:48 - Diagnostic Test Radiology reviewed: Reports reviewed <ANDRÉS CABRERA IV - Last Filed: 03/13/20 00:29> - Laboratory Result Diagrams: 03/12/20 16:48 03/12/20 16:48 <MALISSA ORTEGA - Last Filed: 03/13/20 00:49> - Re-evaluation Re-evalutation: 03/13/20 00:18 Results of ED MSE discussed with patient using [employer] kids activities coach. Patient was informed that he has had blood seen in his urinalysis on his past 2 visits but no evidence of an obstructing stone on his prior to CAT scans. Given that both scans involve the use of contrast, it is possible that there is a small stone that may have been obscured. However there does not appear to be any evidence of hydronephrosis or hydroureter or anything else to suggest an obstructing stone. The patient was instructed that given that he might have a small stone that is causing his right abdominal/right flank pain, he will be put on Flomax in addition to the prednisone for his sciatica symptoms. Patient was encouraged to allow at least 48 hours for these medications to take effect and was counse led on emergency signs and symptoms, reasons to return to the emergency department. All questions were answered using [employer] prior to discharge. (ANDRÉS CABRERA IV) - Vital Signs Vital signs: Temp Pulse Resp BP Pulse Ox 98.5 F 69 18 131/79 H 99 03/12/20 22:33 03/13/20 00:28 03/13/20 00:28 03/13/20 00:28 03/13/20 00:28 - Laboratory Laboratory results interpreted by me: 03/12/20 16:50 Urine Blood MODERATE H Discharge <ANDRÉS CABRERA IV - Last Filed: 03/13/20 00:29> <MALISSA ORTEGA - Last Filed: 03/13/20 00:49> - Discharge Clinical Impression: Sciatica Qualifiers: Laterality: bilateral Qualified Code(s): M54.31 - Sciatica, right side Hematuria Qualifiers: Hematuria type: unspecified type Qualified Code(s): R31.9 - Hematuria, unspe cified Condition: Stable Disposition: HOME, SELF-CARE Instructions: Sciatica ([facility]), Hematuria ([facility]) Additional Instructions: Return to the Emergency Department without delay if any worse. HOME CARE INSTRUCTIONS & INFORMATION: Thank you for choosing us for your medical needs. We hope you're satisfied with the care you received. After you leave, you must properly care for your problem and, at the same time, observe its progress. Any condition can change. Some illnesses can change rapidly over hours or days. If your condition worsens, return to the Emergency Department or see your physician promptly. ABOUT YOUR X-RAYS AND EKG'S: If you had an EKG or X-rays taken, they have been read by the Emergency Physician. The X-rays and EKG's will also be read by a Radiologist or [employer] Hand Engraver within 24 hours. If discrepancies are noted, you will be notified by telephone. Please be certain the ED has a correct telephone number & address where you can be reached. Also, realize that some fractures or abnormalities do not show up on initial X-rays. If your symptoms continue, see your physician. ABOUT YOUR LABORATORY TEST: If you had laboratory tests, the results have been reviewed by the Emergency Physician. Some test results (for example cultures) may not be available for several days. You will be contacted if any test result shows you need additional treatment. Please be certain the ED has a correct telephone number and address where you can be reached. ABOUT YOUR MEDICATIONS: You will receive instructions on how to take your medicine on the prescription label you receive. Additional information may be provided by the Pharmacy. If you have questions afterwards, call the ED for clarification or further instructions. Some prescribed medications may cause drowsiness. Do not perform tasks such as driving a car or operating machinery without consulting your Pharmacist. If you feel you need a refill of pain medication, your condition will need re-evaluation. Please do not call for a refill of any medication. ABOUT YOUR SIGNATURE: Signature of this document acknowledges to followin. Understanding that you received emergency treatment and that you may be released before al medical problems are known or treated. Please be certain the ED has a correct phone number & address where you can be reached. 2. Acknowledgement that you will arrange for follow-up care as recommended. 3. Authorization for the Emergency Physician to provide information to your follow-up Physician in order to maximize your care. AT ANY TIME, IF YOUR SYMPTOMS CHANGE SIGNIFICANTLY OR WORSEN OR YOU DEVELOP NEW SYMPTOMS, RETURN TO THE EMERGENCY DEPARTMENT IMMEDIATELY FOR RE-EVALUATION. OUR GOAL IS TO PROVIDE EXCELLENT MEDICAL CARE! WE HOPE THAT WE HAVE MET YOUR EXPECTATIONS DURING YOUR EMERGENCY DEPARTMENT VISIT AND THAT YOU FEEL YOU HAVE RECEIVED EXCELLENT CARE! Hematuria Hematuria, or blood in your urine, can be caused by minor medical problems, such as a bladder infection, or by more serious medical conditions, such as kidney stones or even tumors of the bladder or kidney. If the cause of the hematuria is known (such as a bladder infection) and can be treated, it may not need further evaluation. If the cause is not known, it will usually require further evaluation by a specialist, such as a urologist. In particular, unexplained hematuria in the older patient must be evaluated to rule out a serious condition, such as a bladder or kidney tumor. If the hematuria worsens or you are passing clots and then are unable to urinate, you should be re-evaluated. A catheter may need to be placed in the bladder to permit passage of urine. If you develop high fever, severe pain, or other new or worsening symptoms, return to the Emergency Department for re-evaluation. Sciatica Your symptoms suggest "sciatica." The pain of sciatica typically radiates down the leg. Numbness in the foot or calf may also occur. Sciatica is caused by irritation of the sciatic nerve or its branches. The irritation can be due to a herniated disk in the spine, swelling and inflammation in the muscles surrounding the sciatic nerve, or direct injury of the nerve itself. Most cases of sciatica will resolve with medical treatment. Bed rest is usually recommended initially. Surgery is only necessary when the condition will not improve with rest and antiinflammatory medication. Muscle relaxers are often given if muscle soreness is present. A CAT scan of the back may be performed if a herniated disk is suspected. Re-examination is necessary if you develop increasing numbness, localized weakness in the foot or ankle, or if the pain does not respond to rest. Prescriptions: Prednisone [Deltasone 20 mg Tablet] 3 tab PO DAILY 4 Days #12 tablet Tamsulosin HCl [Flomax 0.4 mg Cap.sr] 0.4 mg PO DAILY #7 cap.sr.24h Referrals: ESTHER LOYA MD [HONORARY] - Follow up as needed Print Language: Estonian I personally performed the services described in the documentation, reviewed and edited the documentation which was dictated to the scribe in my presence, and it accurately records my words and actions.
--- NOTE | 2020-03-12 23:47 | RADIOLOGY REPORT (SQ) ---
CT abdomen and pelvis with contrast on 03/12/2020 at 11:20 PM CLINICAL INDICATION: Right upper quadrant and right lower quadrant abdominal pain, constipation TECHNIQUE: Multiple axial images are obtained throughout the abdomen and pelvis following the administration of IV and oral contrast. 72 mL of Omnipaque 350 contrast was administered intravenously. This exam was performed according to our departmental dose-optimization program, which includes automated exposure control, adjustment of the mA and/or kV according to patient size and/or use of iterative reconstruction technique. Total DLP is 532.96 mGy*cm. COMPARISON: 02/26/2020 FINDINGS: Abdomen: The lung bases are clear. The solid abdominal organs are unremarkable. There is no abdominal adenopathy. There is no free fluid or free air within the abdomen. The abdominal portion of the GI tract is unremarkable. Pelvis: No increased stool to suggest constipation is noted. The pelvic portion of the GI tract including the appendix is unremarkable. No free fluid is noted in the pelvis. There is no pelvic adenopathy. No bony abnormality is noted. IMPRESSION: No acute abnormality.
[2020-03-13 00:28] VITALS: BP 131/79
[2020-03-13] MEDS ORDERED: TAMSULOSIN HCL 0.4 MG CAP.SR.24H PO ONE (00:29)
== END 2020-03-13 01:05 | disposition home or self-care (01) ==
LOC: ER 14:57
DX: M54.31 Sciatica, right side (principal); R31.9 Hematuria, unspecified; K59.00 Constipation, unspecified; R10.9 Unspecified abdominal pain
CPT/HCPCS: 99284; 96361; 96374; 96375; 36415; 85025; 80053; 81001; 74022; 74177; J3490; J2930; J1885; J2270; J2405; J7030

== ENCOUNTER 2020-08-23 17:02 | Emergency (ER) | payer SELFPAY ==
[2020-08-23 17:13] VITALS: BP 142/75
--- NOTE | 2020-08-23 18:01 | ER Document Report ---
HPI - HPI Time Seen by Provider: 08/23/20 17:14 Pain Level: 2 Notes: 45-year-old male presents to the emergency room today for complaints of not being able to hear out of his left ear. We communicated through [employer] since patient is Indonesian-speaking. Denies any fevers or chills. Eating and drink without issues. Denies any drainage from ear. Patient states he has had issues with hearing from his left ear for a week or so. Has not tried any [id number] medications. Denies fevers, chills, chest pain,palpitations, shortness of breath, dyspnea, nausea, vomiting, diarrhea, abdominal pain, hematuria, speech changes, LH, dizziness, syncope, headaches, wheezing, ST, URI, neck pain, weakness, bowel or bladder dysfunction, saddle anesthesia, numbness or tingling in bilateral upper or lower extremities equally, muscle paralysis, weakness in bilateral upper or lower extremities equally or rash. - EENT EENT: REPORTS: Ear Pain Past Medical History - General Information source: Patient - Social History Smoking Status: Never Smoker Family History: Reviewed & Not Pertinent Pulmonary Medical History: Reports: Hx Asthma Denies: Hx COPD Renal/ Medical History: Denies: Hx Peritoneal Dialysis - Immunizations Hx Diphtheria, Pertussis, Tetanus Vaccination: No Vertical Provider Document - CONSTITUTIONAL Agree With Documented VS: Yes Exam Limitations: No Limitations General Appearance: WD/WN Notes: MEDICATIONS: I agree with the patient medications as charted by the RN. ALLERGIES: I agree with the allergies as charted by the RN. PAST MEDICAL HISTORY/PAST SURGICAL HISTORY: Reviewed and agree as charted by RN. SOCIAL HISTORY: Reviewed and agree as charted by RN. FAMILY HISTORY: No significant familial comorbid conditions directly related to patient complaint EXAM: Reviewed vital signs as charted by RN. PHYSICAL EXAMINATION:reviewed vital signs by RN GENERAL: Well-appearing, well-nourished and in no acute distress. HEAD: Atraumatic, normocephalic. EYES: Pupils equal round and reactive to light, extraocular movements intact, sclera anicteric, conjunctiva are normal. ENT: Bilateral external canal without any exudate or erythema. Left TM occluded with cerumen. Right TM with light reflex, intact, no erythema. Nares patent, oropharynx clear without exudates. Moist mucous membranes. NECK: Normal range of motion, supple without lymphadenopathy LUNGS: Breath sounds clear to auscultation bilaterally and equal. No wheezes rales or rhonchi. HEART: Regular rate and rhythm without murmurs ABDOMEN: Soft, nontender, nondistended abdomen. No guarding, no rebound. No masses appreciated. Musculoskeletal: Normal range of motion, no pitting or edema. No cyanosis. NEUROLOGICAL: Cranial nerves grossly intact. Normal speech, normal gait. Normal sensory, motor exams PSYCH: Normal mood, normal affect. SKIN: Warm, Dry, normal turgor, no rashes or lesions noted. - INFECTION CONTROL TRAVEL OUTSIDE OF THE [place] IN LAST 30 DAYS: No Course - Re-evaluation Re-evalutation: 08/23/20 18:00 Afebrile vital stable no distress. Nurses notes reviewed. Nurse did a cerumen irrigation of the left ear, copious amounts of cerumen were removed. On reevaluation of ear, left TM without any erythema, intact, with positive light reflex. Discussed with patient that he had a cerumen impaction. He can use [id number] do Brox to keep it clean. Advised to not use Q-tips to clean his ears. Follow-up with his primary care provider as needed. After performing a Medical Screening Examination, I estimate there is LOW risk for malignant otitis media, mastoiditis, MENINGITIS, or ACUTE CORONARY SYNDROME, thus I consider the discharge disposition reasonable. I have reevaluated this patient multiple times and no significant life threatening changes are noted. The patient and I have discussed the diagnosis and risks, and we agree with discharging home to follow-up on an outpatient basis with the understanding that symptoms and presentations can change. We also discussed returning to the Emergency Department immediately if new or worsening symptoms occur. We have discussed the symptoms which are most concerning (e.g., high fevers, confusion) that necessitate immediate return. - Vital Signs Vital signs: Temp Pulse Resp BP Pulse Ox 98.4 F 72 20 142/75 H 98 08/23/20 17:12 08/23/20 17:12 08/23/20 17:12 08/23/20 17:12 08/23/20 17:12 - Laboratory Results Critical Laboratory Results Reviewed: No Critical Results - Radiology Results Critical Radiology Results Reviewed: No Critical Results Discharge - Discharge Clinical Impression: Left ear impacted cerumen Condition: Stable Disposition: HOME, SELF-CARE Instructions: Cerumen Impaction ([facility]) Additional Instructions: Return immediately for any new or worsening symptoms. Follow up with primary care provider, call tomorrow to make followup appointment. Forms: Return to Work Referrals: VAISHALI SAINZ DO [NO LOCAL MD] - Follow up as needed Print Language: Indonesian
== END 2020-08-23 18:02 | disposition home or self-care (01) ==
LOC: ER 17:02
DX: H61.22 Impacted cerumen, left ear (principal); H92.09 Otalgia, unspecified ear; J45.909 Unspecified asthma, uncomplicated
CPT/HCPCS: 99282